=== PATIENT | female | born 1990 | race Two or more races ===

== ENCOUNTER 2017-05-08 12:08 | Outpatient (CLI) | payer MEDICAID ==
[2017-05-08] MEDS: LACTATED RINGER'S 500 ML IV (12:50)
[2017-05-08] MEDS ORDERED: LACTATED RINGER'S 1,000 ML IV (14:00)
== END 2017-05-08 13:47 | disposition left against medical advice (07) ==
LOC: OBT 12:08 → L-D 12:08 → OBT 13:47
DX: O41.02X0 Oligohydramnios, second trimester, not applicable or unspecified (principal); O24.419 Gestational diabetes mellitus in pregnancy, unspecified control; Z3A.27 27 weeks gestation of pregnancy
CPT/HCPCS: 36415

== ENCOUNTER 2017-06-02 10:42 | Outpatient (CLI) | payer MEDICAID | END 2017-06-02 11:40 | disposition home or self-care (01) | LOC: OBT 10:42 → L-D 10:44 → OBT 11:40 | DX: O41.93X0 Disorder of amniotic fluid and membranes, unspecified, third trimester, not applicable or unspecified (principal); Z3A.36 36 weeks gestation of pregnancy | CPT/HCPCS: 76818 ==

== ENCOUNTER 2017-06-11 08:17 | Inpatient (IN) | payer MEDICAID ==
[2017-06-11] MEDS ORDERED: METHYLERGONOVINE 0.2 MG INJ IM (08:30)
[2017-06-11] MEDS ORDERED: MISOPROSTOL 200 MCG TAB PR (08:30)
[2017-06-11] MEDS ORDERED: IBUPROFEN 600 MG TAB PO (08:30)
[2017-06-11] MEDS ORDERED: OXYTOCIN 30 UNITS/LR 500 ML IV ×2 (08:30)
[2017-06-11] MEDS ORDERED: CARBOPROST 250 MCG INJ IM (08:30)
[2017-06-11] MEDS ORDERED: LIDOCAINE 1% (MPF) 30 ML INJ INJ (08:30)
[2017-06-11] MEDS: LACTATED RINGER'S 1,000 ML IV ×4 (08:41→20:27)
[2017-06-11 09:42] LABS: ADD MAN DIFF? NO
[2017-06-11 09:46] LABS: BASOPHILS % 0.3 % (0.0-2.0); EOSINOPHILS # 0.1 10^3/ul (0.0-0.5); EOSINOPHILS % 0.9 % (0.0-7.0); HEMATOCRIT 35.9 % (37.0-47.0); HEMOGLOBIN 12.8 g/dl (12.0-16.0); LYMPHOCYTES # 1.7 10^3/ul (0.8-2.9); LYMPHOCYTES % 22.7 % (15.0-51.0); MEAN CORPUSCULAR HEMOGLOBIN 31.2 pg (29.0-33.0); MEAN CORPUSCULAR HGB CONC 35.7 g/dl (32.0-37.0); MEAN CORPUSCULAR VOLUME 87.6 fl (82.0-101.0); MEAN PLATELET VOLUME 10.5 fl (7.4-10.4); MONOCYTE # 0.6 10^3/ul (0.3-0.9); MONOCYTES % 7.4 % (0.0-11.0); NEUTROPHIL # 5.1 10^3/ul (1.6-7.5); NEUTROPHILS % 68.2 % (39.0-77.0); PLATELET COUNT 163 10^3/UL (140-415); RED CELL DISTRIBUTION WIDTH 12.8 % (11.5-14.5)
[2017-06-11 09:46] LABS: WHITE BLOOD COUNT 7.5 10^3/ul (4.8-10.8)
[2017-06-11 10:09] LABS: INR 0.88; PT RATIO 0.9
[2017-06-11 10:10] LABS: PARTIAL THROMBOPLASTIN TIME 27.8 Sec (25.0-35.0)
[2017-06-11] MEDS: MISOPROSTOL 25 MCG CAPSULE PO (10:17)
[2017-06-11 10:38] LABS: GLUCOSE 79 mg/dl (70-220)
[2017-06-11 10:46] LABS: HEPATITIS B SURFACE ANTIGEN NEGATIVE (NEGATIVE)
[2017-06-11] MEDS: DEXTROSE 5%-LR 1,000 ML IV ×2 (11:41→20:14)
[2017-06-11] MEDS: ACCU-CHEK XX (12:00)
[2017-06-11] MEDS ORDERED: MISOPROSTOL 25 MCG CAPSULE PO (13:00)
[2017-06-11 15:44] LABS: RAPID PLASMA REAGIN NONREACTIVE (NR)
[2017-06-11] MEDS: BUTORPHANOL 2 MG INJ IV (18:37)
[2017-06-11] MEDS ORDERED: FENTAnyl 2MCG/ML-ROPIV 0.2% 100 ML (21:02)
[2017-06-11] MEDS: OXYTOCIN 30 UNITS/LR 500 ML IV (21:42)
[2017-06-11] MEDS ORDERED: NALOXONE (0.4 MG/ML) INJ IV (22:30)
[2017-06-11] MEDS ORDERED: FENTAnyl 2MCG/ML-ROPIV 0.2% 100 ML BAG EPI (22:30)
[2017-06-12] MEDS: OXYTOCIN 30 UNITS/LR 500 ML IV (04:18)
[2017-06-12] MEDS: LACTATED RINGER'S 1,000 ML IV* ×2 (06:08→14:08)
[2017-06-12] MEDS ORDERED: METHYLERGONOVINE 0.2 MG INJ IM (06:30)
[2017-06-12] MEDS ORDERED: OXYTOCIN 30 UNITS/LR 500 ML IV (06:30)
[2017-06-12] MEDS ORDERED: CARBOPROST 250 MCG INJ IM (06:30)
[2017-06-12] MEDS ORDERED: MISOPROSTOL 200 MCG TAB PR (06:30)
[2017-06-12] MEDS ORDERED: DIBUCAINE 1% 30 GM OINT PR (06:30)
[2017-06-12] MEDS ORDERED: ACETAMINOPHEN 325 MG TAB PO (06:30)
[2017-06-12] MEDS: WITCH HAZEL/GLYCERIN PAD PR (07:01)
[2017-06-12] MEDS: BENZOCAINE 20% 56 ML SPRAY TOP (07:02)
[2017-06-12] MEDS: SENNA/DOCUSATE NA (8.6MG/50MG) TAB PO ×2 (09:44→22:02)
[2017-06-12] MEDS: IBUPROFEN 600 MG TAB PO ×3 (12:05→22:00)
[2017-06-13] MEDS: HYDROCODONE/APAP (5/325) TAB PO (06:06)
[2017-06-13] MEDS: IBUPROFEN 600 MG TAB PO ×4 (06:06→23:59)
[2017-06-13] MEDS: LACTATED RINGER'S 1,000 ML IV* ×2 (07:30→08:46)
[2017-06-13] MEDS: SENNA/DOCUSATE NA (8.6MG/50MG) TAB PO ×2 (08:47→20:47)
[2017-06-13 09:27] LABS: ADD MAN DIFF? NO
[2017-06-13 09:30] LABS: WHITE BLOOD COUNT 11.8 10^3/ul (4.8-10.8)
[2017-06-13 09:30] LABS: BASOPHILS % 0.3 % (0.0-2.0); EOSINOPHILS # 0.2 10^3/ul (0.0-0.5); EOSINOPHILS % 1.5 % (0.0-7.0); HEMATOCRIT 36.1 % (37.0-47.0); HEMOGLOBIN 12.8 g/dl (12.0-16.0); LYMPHOCYTES # 1.9 10^3/ul (0.8-2.9); LYMPHOCYTES % 16.2 % (15.0-51.0); MEAN CORPUSCULAR HGB CONC 35.5 g/dl (32.0-37.0); MEAN CORPUSCULAR VOLUME 87.4 fl (82.0-101.0); MEAN PLATELET VOLUME 10.4 fl (7.4-10.4); MONOCYTE # 0.5 10^3/ul (0.3-0.9); MONOCYTES % 4.6 % (0.0-11.0); NEUTROPHIL # 9.1 10^3/ul (1.6-7.5); NEUTROPHILS % 76.8 % (39.0-77.0); PLATELET COUNT 146 10^3/UL (140-415); RED BLOOD COUNT 4.13 10^6/ul (4.20-5.40)
[2017-06-14] MEDS: HYDROCODONE/APAP (5/325) TAB PO (03:47)
[2017-06-14] MEDS: IBUPROFEN 600 MG TAB PO (05:41)
[2017-06-14] MEDS: SENNA/DOCUSATE NA (8.6MG/50MG) TAB PO (09:00)
[2017-06-14] MEDS: DIPHTH/TET/ACEL PERTUSS (ADULT) 0.5 ML VIAL IM* (09:00)
[2017-06-15] MEDS ORDERED: INFLUENZA VIRUS VACCINE 0.5 ML (DISPENSING) IM* (09:00)
== END 2017-06-14 10:56 | disposition home or self-care (01) | DRG 775 ==
LOC: L-D 08:17 → PP1 06-12 05:47
PROVIDERS: Obstetrics & Gynecology
PROC: 3E033VJ Introduction of Other Hormone into Peripheral Vein, Percutaneous Approach (ICD-10-PCS; 2017-06-11 08:30)
DX: O36.5930 Maternal care for other known or suspected poor fetal growth, third trimester, not applicable or unspecified (principal); O24.429 Gestational diabetes mellitus in childbirth, unspecified control; O70.1 Second degree perineal laceration during delivery; O69.81X0 Labor and delivery complicated by cord around neck, without compression, not applicable or unspecified; Z3A.37 37 weeks gestation of pregnancy; Z37.0 Single live birth
CPT/HCPCS: 62319; 82947; 82962; 85025; 85610; 85730; 86592; 86900; 86901; 87340; 88307; 90715; 99464